=== PATIENT | female | born 1955 | race Caucasian/White ===

== ENCOUNTER → 2023-10-11 09:13 | Outpatient (REF) | payer MEDICARE, OTHER, SELFPAY | LOC: RAD 09:13 | PROVIDERS: ATTENDING PHYSICIAN Internal Medicine | DX: M25.551 Pain in right hip (principal) | CPT/HCPCS: 72110; 73502 ==

== ENCOUNTER → 2023-11-13 09:17 | Outpatient (REF) | payer MEDICARE, OTHER, SELFPAY | LOC: MRI 3T 09:17 | PROVIDERS: ATTENDING PHYSICIAN Physician Assistant; FAMILY PHYSICIAN Internal Medicine | DX: M54.16 Radiculopathy, lumbar region (principal) | CPT/HCPCS: 72148 ==

== ENCOUNTER → 2024-01-05 14:37 | Outpatient (REF) | payer MEDICARE, OTHER, SELFPAY | LOC: HWRAD 14:37 | PROVIDERS: ATTENDING PHYSICIAN Specialist; FAMILY PHYSICIAN Internal Medicine | DX: N30.20 Other chronic cystitis without hematuria (principal); N20.0 Calculus of kidney | CPT/HCPCS: 76770 ==

== ENCOUNTER → 2024-10-17 13:14 | Outpatient (REF) | payer MEDICARE, OTHER, SELFPAY | LOC: RAD 13:14 | PROVIDERS: ATTENDING PHYSICIAN Internal Medicine | DX: R60.0 Localized edema (principal) | CPT/HCPCS: 93970 ==

== ENCOUNTER → 2025-01-27 15:57 | Outpatient (REF) | payer MEDICARE, OTHER, SELFPAY | LOC: RAD 15:57 | PROVIDERS: ATTENDING PHYSICIAN Specialist; FAMILY PHYSICIAN Internal Medicine | DX: N20.0 Calculus of kidney (principal) | CPT/HCPCS: 76775 ==

== ENCOUNTER → 2025-05-06 09:32 | Outpatient (REF) | payer MEDICARE, OTHER, SELFPAY | LOC: REG 09:32 | PROVIDERS: ATTENDING PHYSICIAN Internal Medicine | DX: E78.5 Hyperlipidemia, unspecified (principal); R53.83 Other fatigue; E03.9 Hypothyroidism, unspecified; M19.90 Unspecified osteoarthritis, unspecified site; Z83.3 Family history of diabetes mellitus | CPT/HCPCS: 36415 ==

== ENCOUNTER → 2025-05-26 14:44 | Outpatient (REF) | payer MEDICARE, OTHER, SELFPAY | LOC: RAD 14:44 | PROVIDERS: ATTENDING PHYSICIAN Internal Medicine | DX: M16.11 Unilateral primary osteoarthritis, right hip (principal); S73.191S Other sprain of right hip, sequela; M25.551 Pain in right hip | CPT/HCPCS: 73502 ==

== ENCOUNTER → 2025-06-06 14:38 | Outpatient (REF) | payer MEDICARE, OTHER, SELFPAY | LOC: RAD 14:38 | PROVIDERS: ATTENDING PHYSICIAN Internal Medicine | DX: M79.661 Pain in right lower leg (principal) | CPT/HCPCS: 93971 ==

== ENCOUNTER → 2025-06-20 11:14 | Outpatient (REF) | payer MEDICARE, OTHER, SELFPAY | LOC: HWRAD 11:14 | PROVIDERS: ATTENDING PHYSICIAN Internal Medicine; REFERRING PHYSICIAN Obstetrics & Gynecology Gynecology | DX: M81.0 Age-related osteoporosis without current pathological fracture (principal) | CPT/HCPCS: 77063; 77067; 77080 ==